=== PATIENT | male | born 1960 | race Caucasian/White ===

== ENCOUNTER 2017-11-27 14:01 | Emergency (ER) | payer OTHER ==
[~2017-11-27] VITALS: Ht 188 cm; Wt 106.0 kg
[2017-11-27 14:14] VITALS: TEMP 36.5; Ht 188 cm; Wt 106.0 kg
[2017-11-27] MEDS ORDERED: GELATIN SPONGE SZ 100 EXT STA (14:55)
[2017-11-27] MEDS ORDERED: GLC/500 PO (15:14)
--- NOTE | 2017-11-27 15:32 | EMERGENCY ROOM VISIT NOTE ---
History First contact with patient: 14:19 Chief Complaint: BLEEDING Stated Complaint: FOOT BLEEDING, 911 CALLED AND WRAPPED IT Nursing Triage Summary: pt has a wound to the right inner foot. circular the size of an erazer. pt wound is no longer bleeding History of Present Illness The patient is a 57 year old male who presents to the Emergency Room accompanied by with complaints of "foot bleeding, 911 called and wrapped and ankle. The patient states that he has had a bulge on the medial aspect of the right foot just below the medial malleolus that he had scheduled appointment with the local wound care/foot clinic. He notes that he accidentally missed his appointment, and today while in the shower it began bleeding. He notes that it was a steady stream and not pulsatile. He states that he called 911. He was taken to the foot care center however had missed his appointment therefore came here for evaluation. He notes bleeding has stopped. His tetanus is up-to-date. He does not take any anticoagulants. He does have diabetes. Review of Systems A complete 6-point Review of Systems was discussed with the patient, with pertinent positives and negatives listed in the History of Present Illness. All remaining Review of Systems questions can be considered negative unless otherwise specified. Past Medical/Surgical History Medical Problems: (1) Kidney stone Surgical Problems: (1) History of inguinal herniorrhaphy Family History FH: diabetes mellitus FHx: kidney disease Social History Smoking Status: Current Some Day Smoker Alcohol Use: occasionally Marital Status: Occupation Status: employed Current/Historical Medications Scheduled Metformin Hcl (Glucophage), 1,000 MG PO BID Physical Exam Vital Signs Date Time Temp Pulse Resp B/P (MAP) Pulse Ox O2 Delivery O2 Flow Rate FiO2 11/27/17 15:52 72 20 115/70 99 11/27/17 14:14 36.5 70 18 119/76 96 Room Air Physical Exam VITAL SIGNS - Vital signs and nursing notes were reviewed. Stable. GENERAL -57-year-old male appearing his stated age who is in no acute distress. Communicates well with provider and answers questions appropriately. SKIN - overlying the medial aspect of the patient's right foot just below the right medial malleolus there is a small subcentimeter scab overlying a varicose vein. Medical Decision & Procedures Medical Decision Patient was seen and evaluated as above. He presents to us today with what I suspect to be a bleeding varicose vein has stopped upon my exam. This unfortunately isn't a location that sustains a lot of wear between the socks, and his shoes. For this reason, benefits versus risk of management was discussed. Because the likelihood of the rebleed I did elect to apply a small amount of Gelfoam, and wrap the region. This is to protect it. He was also given the remainder of the Gelfoam in the event of an emergent bleed so as to not waste the remainder of the Gelfoam. He is to follow with the foot and consumer affairs specialist on Saturday. Keep her stable for outpatient management. He was educated upon management, educated upon worrisome symptoms which to return, had questions answered prior to discharge, and was discharged home in good condition. In evaluation treatment this patient the following differential diagnoses were entertained: Varicose vein, wound, laceration, among others. Impression Primary Impression: Bleeding from varicose veins of right lower extremity Departure Information Dispostion Home / Self-Care Condition GOOD Referrals rBannon Hung D.O. (PCP) Patient Instructions My [facility] Additional Instructions You were seen in the emergency department for bleeding from a varicose vein of the inner side of your right foot. I do recommend keeping the dressing on for 1 day. That time please remove all of the dressing, and reapply without Gelfoam. Gelfoam should only be used for emergency situations in which bleeding cannot be controlled and I recommend going to the closest emergency department. Please keep your follow-up with the wound care center 9 AM on Saturday as well as 10 AM footcare individuals. Please return with any new/concerning symptoms.
[2017-11-27 15:52] VITALS: BP 115/70; PULSE 72; O2SAT 99
== END 2017-11-27 15:54 | disposition home or self-care (01) ==
LOC: C.EDB 14:03 → C.EDD 15:54
DX: I83.90 Asymptomatic varicose veins of unspecified lower extremity (principal); Z83.3 Family history of diabetes mellitus; F17.200 Nicotine dependence, unspecified, uncomplicated